=== PATIENT | female | born 1950 | race African-American/Black ===

== ENCOUNTER → 2017-10-04 | Outpatient (CLI) | payer OTHER | END | disposition home or self-care (01) | LOC: MAMMO 10:46 | DX: Z12.31 Encounter for screening mammogram for malignant neoplasm of breast (principal) | CPT/HCPCS: 77067 ==

== ENCOUNTER → 2020-06-02 | Outpatient (CLI) | payer OTHER ==
--- NOTE | 2020-06-03 14:25 | RAD ---
DATE: 06/02/2020 12:34 PM EXAM: MAMMO [facility] SCREENING BILATERAL HISTORY: Screening COMPARISON: 10/04/2017 Bilateral CC and MLO views of the breasts were performed. Bilateral breast tomosynthesis was performed in CC and MLO projections. This study was interpreted with the benefit of Computerized Aided Detection (CAD). FINDINGS: Breast Density: FATTY The Breast Parenchyma is primarily fatty replaced. Breast parenchyma level density A. No suspicious masses, microcalcifications or architectural distortion is present to suggest malignancy in either breast. The visualized axillae are unremarkable. IMPRESSION: No mammographic evidence of malignancy. BI-RADS CATEGORY: 1 NEGATIVE RECOMMENDED FOLLOW-UP: 12M 12 MONTH FOLLOW-UP Annual screening mammography is recommended, unless clinically indicated sooner based on symptoms or change in physical exam. PQRS compliance statement: Patient information was entered into a reminder system with a target due date for the next mammogram. Mammography is a sensitive method for finding small breast cancers, but it does not detect them all and is not a substitute for careful clinical examination. A negative mammogram does not negate a clinically suspicious finding and should not result in delay in biopsying a clinically suspicious abnormality. "Our facility is accredited by the [employer] Mammography Program."
== END ==
LOC: MAMMO 12:28
PROVIDERS: ATTEND Internal Medicine
DX: Z12.31 Encounter for screening mammogram for malignant neoplasm of breast (principal)
CPT/HCPCS: 77063; 77067

== ENCOUNTER → 2021-04-17 | Outpatient (CLI) | payer OTHER ==
--- NOTE | 2021-04-18 08:47 | RAD ---
EXAM: AP and lateral views of the lumbar spine DATE: 04/17/2021 2:30 PM INDICATION: RIGHT LUMBAR RADICULOPATHY. COMPARISON: No Prior FINDINGS: 5 nonrib-bearing lumbar-type vertebral bodies. Vertebral body heights are preserved. Decreased bone m ineral density. Advanced facet degenerative changes throughout the lumbar spine. There is a 6 cm ante rolisthesis of L4 on L5. Moderate L5-S1 disc height loss mild L1-2, L3-4 disc height loss. SI joint a nd symphysis pubis degenerative changes are seen. IMPRESSION: 1. Multilevel spondylosis as above 2. Negative acute fracture or subluxation. Electronically signed by: Mauricio Durand MD (04/18/2021 8:45 AM) [id number]
== END ==
LOC: RAD 14:11
PROVIDERS: ATTEND Internal Medicine
DX: M47.26 Other spondylosis with radiculopathy, lumbar region (principal); M43.16 Spondylolisthesis, lumbar region; M46.1 Sacroiliitis, not elsewhere classified
CPT/HCPCS: 72100

== ENCOUNTER → 2021-07-06 | Outpatient (CLI) | payer OTHER ==
--- NOTE | 2021-07-06 17:06 | RAD ---
Bilateral digital screening 2-D and 3-D (digital breast tomosynthesis) mammogram: Reason for examination: Routine screening. Comparison: Mammograms from 06/02/2020 and 10/04/2017. Interpretation was made with the benefit of CAD. FINDINGS: Breast density: Category A. Breast tissue is almost entirely fatty. No suspicious breast mass, malignant appearing calcifications, or architectural distortion is seen. T here is unchanged scarring and clips in the 12:30 region of the left breast at anterior depth from pr evious benign biopsy. IMPRESSION: No evidence of malignancy. Assessment: BI-RADS 1. Negative. Recommendation: Routine screening mammograms. The patient will receive a letter with the results in the mail. Patient information will be entered i nto the mammography reminder system with a target recall date for the next mammogram. A reminder scotty er will be generated. Electronically signed by: Lola Salinas MD (07/06/2021 5:04 PM) [id number]
== END ==
LOC: MAMMO 13:39
PROVIDERS: ATTEND Internal Medicine
DX: Z12.31 Encounter for screening mammogram for malignant neoplasm of breast (principal)
CPT/HCPCS: 77063; 77067

== ENCOUNTER → 2021-09-28 | Outpatient (CLI) | payer OTHER ==
--- NOTE | 2021-09-28 12:17 | RAD ---
EXAM: Lumbar spine MRI without contrast. HISTORY: Acute back pain. TECHNIQUE: Multiplanar, multisequence magnetic resonance imaging of the lumbar spine was performed wi thout contrast. COMPARISON: None. FINDINGS: There is mild lumbar hyperlordosis and scoliosis. There is 5 mm grade 1 anterolisthesis of L4 on L5 and L5 and S1. There is 2 mm grade 1 anterolisthesis of L3 on L4 and retrolisthesis of L1 on L2. There is multilevel endplate remodeling, predominantly at L5-S1. There is associated disc space narrowing at this level. There is diffusely heterogeneous marrow signal intensity due to suspected panda ne demineralization. There are superimposed osseous hemangiomas. There is no acute or subacute fractu re. There is no suspicious osseous lesion. The conus terminates at L1. There is a 3.2 cm nodule superior to the right kidney, likely associated with the right adrenal gland . There is right renal cortical thickening due to multiple large peripelvic cysts or pelvicaliectasis , partially included on the [id number]. There are also small left renal cysts. At L1-L2, there is a right foraminal to extra foraminal disc protrusion and osteophyte complex superi mposed on a right lateral predominant disc bulge and endplate remodeling. There is moderate right and mild left facet arthropathy. There is mild retrolisthesis. There is severe right and mild left shara inal stenosis. There is mild central canal stenosis. At L2-L3, there is endplate remodeling. There is mild right facet arthropathy. There is mild right fo raminal stenosis. At L3-L4, there is endplate remodeling. There is moderate pleural facet arthropathy. There is minimal grade 1 anterolisthesis. There is no stenosis. At L4-L5, there is a right extraforaminal to lateral disc protrusion and osteophyte complex superimpo sed on a disc bulge and endplate remodeling. There is severe bilateral facet arthropathy. There is gr ricardo 1 anterolisthesis. There is mild bilateral foraminal stenosis. There is severe central canal sten osis. At L5-S1, there are bilateral lateral recess to extra foraminal disc protrusions and slight superior extrusions superimposed on a disc bulge and endplate osteophytosis. There is severe bilateral facet a rthropathy. There is grade 1 anterolisthesis. There is severe bilateral foraminal stenosis with abutm ent the exiting L5 nerve roots. IMPRESSION: 1. Multilevel degenerative change involving the lumbar spine, described in detail above. This results in stenosis at the aforementioned levels. The central canal stenosis is most severe at L4-L5 and the bilateral foraminal stenosis is most severe at L5-S1. 2. Lumbar scoliosis, hyperlordosis and multilevel listhesis, described above. 3. Right renal cortical thinning due to multiple large peripelvic cysts or pelvicaliectasis, partiall y included on the [id number]. Correlate with renal sonography. 4. 3.2 cm nodule superior to the right kidney, possibly associated with the right adrenal gland. The absence of prior studies to assess for interval change, correlation with cross sectional imaging is r ecommended. Electronically signed by: Lindsay Collier MD (09/28/2021 12:15 PM) [id number]
== END ==
LOC: MRI 10:55
PROVIDERS: ATTEND Psychiatry & Neurology Neurology with Special Qualifications in Child Neurology
DX: R19.8 Other specified symptoms and signs involving the digestive system and abdomen (principal); G62.9 Polyneuropathy, unspecified; N28.1 Cyst of kidney, acquired; M47.816 Spondylosis without myelopathy or radiculopathy, lumbar region; M48.07 Spinal stenosis, lumbosacral region; N28.89 Other specified disorders of kidney and ureter; M51.27 Other intervertebral disc displacement, lumbosacral region; M48.8X7 Other specified spondylopathies, lumbosacral region; M43.17 Spondylolisthesis, lumbosacral region; M25.78 Osteophyte, vertebrae; M40.46 Postural lordosis, lumbar region
CPT/HCPCS: 72148